=== PATIENT | male | born 1985 | race Caucasian/White ===

== ENCOUNTER 2017-07-10 15:16 | Emergency (ER) | payer OTHER ==
[2017-07-10 15:48] VITALS: RESP 16; TEMP 98
[2017-07-10 16:10] VITALS: BP 138/89; PULSE 103; O2SAT 96
== END 2017-07-10 16:08 | disposition home or self-care (01) ==
LOC: ED 15:16
DX: M54.5 Low back pain (principal)
CPT/HCPCS: 99282; 99283